=== PATIENT | male | born 2000 | race Caucasian/White ===

== ENCOUNTER 2023-08-18 17:51 | Emergency (ER) | payer OTHER ==
[2023-08-18 18:11] VITALS: BP 147/90; O2SAT 100
--- NOTE | 2023-08-18 18:19 | ED Physician Documentation ---
PD HPI MAJOR TRAUMA - Stated complaint Stated Complaint: R RIB PX - Chief complaint Chief Complaint: Trauma Ch/Bk - History obtained from History obtained from: Patient - Additional information Additional information: About a week and a half ago he was leaning over something and tightening a bolt that was "overtightened." He felt a pop in his chest and has had persistent right rib pain ever since. No other injuries. Declines pain medication on initial evaluation. PD PAST MEDICAL HISTORY - Past Medical History Past Medical History: No - Past Surgical History Past Surgical History: No - Present Medications Home Medications: Ambulatory Orders Medication Instructions Recorded Confirmed No Known Home Medications 08/18/23 08/18/23 - Allergies Allergies/Adverse Reactions: Allergies Allergy/AdvReac Type Severity Reaction Status Date / Time No Known Drug Allergies Allergy Verified 08/18/23 18:07 - Social History Does the pt smoke?: No Smoking Status: Never smoker Does the pt drink ETOH?: Yes ETOH Use: Beer Does the pt have substance abuse?: No PD ED PE NORMAL - Vitals Vital signs reviewed: Yes - General General: Alert and oriented X 3, No acute distress - Cardiac Cardiac: RRR, No murmur - Respiratory Respiratory: No respiratory distress, Clear bilaterally, Other (Focal tenderness about ribs 6 on the right, anterior axillary line. No bruising or deformity.) - Neuro Neuro: Alert and oriented X 3 Results - Vitals Vitals: Vital Signs - 24 hr 08/18/23 18:02 Temperature 37.2 C Heart Rate 90 Respiratory 18 Rate Blood Pressure 147/90 H O2 Saturation 100 Oxygen O2 Source Room air - Rads (name of study) X-ray of the right ribs and chest was negative. Relevant Findings:: Final report received, EMP independent interpretation of test PD Medical Decision Making - ED course Complexity details: other (L&[place] paperwork [id number] completed and submitted) Departure - Departure Disposition: 01 Home, Self Care Clinical Impression: Contusion of chest wall Qualifiers: Encounter type: initial encounter Laterality: right Qualified Code(s): S20.211A - Contusion of right front wall of thorax, initial encounter Condition: Good Record reviewed to determine appropriate education?: Yes Instructions: ED Contusion Chest Wall Comments: As discussed, the x-ray looks okay but you could have a hairline rib fracture or just some torn muscles in the chest. Follow-up with your doctor in a week if not better. Return for new or worsening symptoms. Ibuprofen as needed per package instructions for pain. Forms: PCP List, Activity restrictions
--- NOTE | 2023-08-18 18:49 | XRAY Report ---
PROCEDURE: Ribs w/PA Chest 3+V RT INDICATIONS: rib inj TECHNIQUE: 2 views of the ribs were acquired, along with a single view chest. COMPARISON: None. FINDINGS: Surgical changes and devices: None. Bones and chest wall: No fractures or dislocations. No suspicious bony lesions. Overlying soft tis sues appear unremarkable. Lungs and pleura: No pleural effusions or pneumothorax. Lungs appear clear. Mediastinum: Mediastinal contours appear normal. Heart size is normal. IMPRESSION: No displaced rib fracture or pneumothorax. Reviewed by: Mandie Flores MD, PhD on 08/18/2023 5:48 PM [facility] Approved by: Mandie Flores MD, PhD on 08/18/2023 5:48 PM [facility]DT Station ID: [id number]
== END 2023-08-18 19:05 | disposition home or self-care (01) ==
LOC: ED 17:51
DX: S20.211A Contusion of right front wall of thorax, initial encounter (principal); X58.XXXA Exposure to other specified factors, initial encounter; Y93.89 Activity, other specified; Y92.63 Factory as the place of occurrence of the external cause; Y99.0 Civilian activity done for income or pay
CPT/HCPCS: 1040M; 71101; 99283; 99284